=== PATIENT | female | born 1965 | race Caucasian/White ===

== ENCOUNTER 2018-04-15 00:27 | Emergency (ER) | payer SELFPAY ==
[~2018-04-15] VITALS: Ht 175.3 cm; Wt 81.4 kg
[2018-04-15 00:46] VITALS: BP 139/86
[2018-04-15] MEDS ORDERED: SILVER SULFADIAZINE 1% 25 GM CREAM TP ONE (02:15)
== END 2018-04-15 02:43 | disposition home or self-care (01) ==
LOC: EMS 00:29
DX: T24.202A Burn of second degree of unspecified site of left lower limb, except ankle and foot, initial encounter (principal); L03.116 Cellulitis of left lower limb; F12.90 Cannabis use, unspecified, uncomplicated; F17.210 Nicotine dependence, cigarettes, uncomplicated; Z88.1 Allergy status to other antibiotic agents; X17.XXXA Contact with hot engines, machinery and tools, initial encounter; Y93.89 Activity, other specified; Y92.89 Other specified places as the place of occurrence of the external cause; Y99.8 Other external cause status
CPT/HCPCS: 16020; 99284; Z7610